=== PATIENT | female | born 1955 | race Caucasian/White ===

== ENCOUNTER → 2017-07-22 | Outpatient (CLI) | payer OTHER ==
[~2017-07-22] MED LIST: ACID REDUCER200 MG PO; ASPIRIN 32325 MG/TAB PO; BENICAR 20MG TA20 MG PO; CO Q-1050 MG; D BIOTIN PO; FLONASE NASAL S16 GM NS; FORT1000TA; GLUCOSAMINE & C1 CA1 PO; HCTZ 25MG TAB25 MG PO; LUTEIN; MVI; NIASPAN1000 MG PO; PRAVACHOL 20MG20 MG PO; SYNTHROID 0.0.025 MG; SYNTHROID0.1 MG/TAB PO; VIT D; ZOLOFT 50MG50 MG PO; [UNRECOGNIZED DRUG - OTHER]; [UNRECOGNIZED DRUG - OTHER]; fish oil; vit e
== END ==
LOC: MC.RAD 13:59
DX: Z12.31 Encounter for screening mammogram for malignant neoplasm of breast (principal)

== ENCOUNTER → 2018-09-29 | Outpatient (CLI) | payer BC | LOC: MC.RAD 09:57 | DX: Z12.31 Encounter for screening mammogram for malignant neoplasm of breast (principal) ==

== ENCOUNTER 2018-10-27 06:50 | Inpatient (IN) | payer BC ==
[~2018-10-27] VITALS: Ht 165.2 cm; Wt 127.0 kg
[2018-10-27] VITALS (10 sets, daily range): BP systolic 97–119; BP diastolic 50–82; PULSE 68–106; TEMP 97.2–97.6
[2018-10-27 07:45] LABS: INR 1.2 (0.8-3.0); PROTHROMBIN TIME 13.4 SECONDS (9.7-12.8)
[2018-10-27] MEDS ORDERED: SYNTHROID 0.10.15 MG PO (08:01)
[2018-10-27] MEDS ORDERED: BENICAR HCT 251 TAB PO (08:02)
[2018-10-27] MEDS ORDERED: PRILOSEC 20MG20 MG PO (08:03)
[2018-10-27] MEDS ORDERED: WELLBUTRIN XL300 M1 PO (08:04)
[2018-10-27] MEDS ORDERED: CULTURELLE CAP1 EAC1 PO (08:06)
[2018-10-27] MEDS ORDERED: VITAMINC1000TA PO (08:07)
[2018-10-27] MEDS ORDERED: NATURAL E400 IU PO (08:07)
[2018-10-27] MEDS ORDERED: ELIQUIS 5MG PO (08:08)
[2018-10-27] MEDS ORDERED: LOPRESSOR 225 MG/TAB PO (08:08)
[2018-10-27] MEDS ORDERED: OSTEO-BI-FLEX 21 TAB PO (08:11)
[2018-10-27] MEDS ORDERED: GLUCOPHAGE XR500 M1 PO (08:12)
[2018-10-27 08:19] LABS: THYROID STIMULATING HORMONE 0.511 uIU/mL (0.465-4.680)
[2018-10-27] MEDS ORDERED: PRAVACHOL 20MG20 MG PO (08:48)
[2018-10-27] MEDS ORDERED: ZOLOFT 50MG50 MG PO (08:48)
[2018-10-27] MEDS ORDERED: CENTRUM SILVER1 CTB PO (08:49)
[2018-10-27] MEDS ORDERED: ASPIRIN E.C. 8181 MG PO (08:50)
[2018-10-27] MEDS ORDERED: THE MEDICINE S200 M2 PO (08:50)
[2018-10-27] MEDS ORDERED: LIDEX CR 15GM TP (08:51)
[2018-10-27] MEDS ORDERED: MASON NATURAL1200 MG PO (08:51)
[2018-10-27] MEDS ORDERED: ZYRTEC 10MG10 MG PO (08:52)
[2018-10-27] MEDS ORDERED: FLONASEALLERGY NS (08:53)
[2018-10-27] MEDS ORDERED: TYLENOL 500MG500 MG PO (08:53)
[2018-10-27] MEDS ORDERED: LUTEIN20 M1 PO (08:57)
--- NOTE | 2018-10-27 09:50 | NUR ---
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 Pt caty LUCHO/CV well. Pt resting well in bed.
--- NOTE | 2018-10-27 10:29 | NUR ---
Pt wake and resting well.
--- NOTE | 2018-10-27 12:00 | NUR ---
Phone report to Diane RAMSEY.
--- NOTE | 2018-10-27 12:25 | NUR ---
Pt transfered to 318 per w/c by nurse. Contreras RN in room to receive pt.
--- NOTE | 2018-10-27 12:35 | NUR ---
This patient arrived to the floor at this time. No pain or needs reported. The call light is in place. Oriented to the room and how to order meals. Telemetry is in place. The is at the bedside.
--- NOTE | 2018-10-27 17:19 | NUR ---
No change throughout the afternoon. No chest pain. Telemetry remains in NRS rate 70 bpm. The call light is in place.
--- NOTE | 2018-10-27 18:56 | NUR ---
Report given to BRAULIO Holbrook to resume care.
--- NOTE | 2018-10-27 20:00 | NUR ---
Shift assessment complete. Pt resting in bedside recliner, awake, a&o, cooperative c cares. Pt denies pain or any other c/o. INT patent. Tele in place. Pt denies needs. Call light in reach, will monitor.
[2018-10-28] VITALS (7 sets, daily range): BP systolic 90–113; BP diastolic 44–75; PULSE 61–64; TEMP 97.5–98.2
--- NOTE | 2018-10-28 08:30 | NUR ---
Assessment complete. Pt sitting up in chair, A&O x 4. Breath sounds CTAB. BS active x 4. Heart sounds S1 & S2 RRR. Saline lock IV to right forearm patent without s/s of complications. Pt denies pain at this time, reports having slight headache over night that has resolved now. No further needs reported. Call light in reach.
--- NOTE | 2018-10-28 09:48 | NUR ---
Initial visit; Patient thanked Property Insurance Claims Examiner for offering "Hello" and God"s blessings.
--- NOTE | 2018-10-28 13:46 | NUR ---
FARRAH and SW student met with the patient to discuss discharge plan. The patient lives in [place] with her , Flex. She reports independence with ADLs and does not use any DME. The patient's PCP is Dr. Amy Eng and she receives her medications at the [facility]. She reports no difficulties obtaining her meds. The patient does not have advanced directives, but she was interested in obtaining the form for DPOA-[facility]. SW provided. The patient plans to return home with her upon discharge. No additional needs at this time.
--- NOTE | 2018-10-28 18:30 | NUR ---
Pt ambulating in hallway with steady gait, uneventful shift, denies pain or dizziness.
--- NOTE | 2018-10-28 20:50 | NUR ---
Shift assessment complete. Pt resting in bedside recliner, awake, a&o, cooperative c cares. Pt denies pain, dizziness, palpitations or any other c/o. INT patent. Tele in place. Pt denies needs. Call light in reach, will monitor
[2018-10-29 03:32] VITALS: BP 117/59; PULSE 66; TEMP 98.1
[2018-10-29 06:42] LABS: CALCIUM 9.8 mg/dL (8.4-10.2); CREATININE, serum 1.25 mg/dL (0.52-1.25); MAGNESIUM 1.7 mg/dL (1.6-2.3)
[2018-10-29 08:32] VITALS: BP 105/47; PULSE 60; TEMP 97.9
--- NOTE | 2018-10-29 08:59 | NUR ---
Initial visit; Patient thanked [employer] for looking in on her and offering God's blessings.
--- NOTE | 2018-10-29 09:00 | NUR ---
Assessment complete. Pt sitting up in chair, A&O x 4. Breath sounds CTAB. BS active x 4. Pt denies pain at this time. Saline lock IV to right forearm patent without s/s of complications. No further needs reported. Call light in reach.
[2018-10-29 12:12] VITALS: BP 115/70; PULSE 54; TEMP 98.5
[2018-10-29 17:01] VITALS: BP 118/71; PULSE 58; TEMP 98.8
--- NOTE | 2018-10-29 18:00 | NUR ---
Pt ambulating in hallway with steady gait, denies needs at this time.
[2018-10-29 20:17] VITALS: BP 105/60; PULSE 59; TEMP 97.9
--- NOTE | 2018-10-29 21:42 | NUR ---
Pt sitting up in recliner watching TV, shift assessment complete.
[2018-10-29 23:55] VITALS: BP 93/54; PULSE 59; TEMP 97.4
[2018-10-30 04:16] VITALS: BP 99/56; PULSE 52; TEMP 97.9
--- NOTE | 2018-10-30 05:18 | NUR ---
Pt slept well during the night, no C/O pain, VS have been stable, Pt's BP has been running in the low 100s to low 90s.
[2018-10-30 08:18] VITALS: BP 118/67; PULSE 66; TEMP 98
[2018-10-30] MEDS ORDERED: BETAPACE 80MG80 MG PO (11:01)
--- NOTE | 2018-10-30 13:50 | NUR ---
Pt was discharged home from hospital. All discharge instructions and paperwork was reviewed with the pt who expressed understanding and had no questions. Saline lock removed, catheter tip intact. New Rx sent electronically. Pt to be escorted out of facility by staff.
== END 2018-10-30 14:49 | disposition home or self-care (01) | DRG 310 ==
LOC: COL.CAR 06:50 → MEDICAL 10:50
PROVIDERS: ADMIT Internal Medicine Cardiovascular Disease
PROC: 5A2204Z Restoration of Cardiac Rhythm, Single (ICD-10-PCS; principal; 2018-10-27)
DX: I48.3 Typical atrial flutter (principal); E78.2 Mixed hyperlipidemia; I12.9 Hypertensive chronic kidney disease with stage 1 through stage 4 chronic kidney disease, or unspecified chronic kidney disease; N18.2 Chronic kidney disease, stage 2 (mild); Z79.01 Long term (current) use of anticoagulants; I83.93 Asymptomatic varicose veins of bilateral lower extremities; E83.42 Hypomagnesemia
CPT/HCPCS: G9654; J2704; J3475; J7030

== ENCOUNTER → 2019-11-12 | Outpatient (CLI) | payer MEDICARE, OTHER ==
[~2019-11-12] MED LIST changes: +ASPIRIN E.C. 8181 MG PO; +BENICAR HCT 251 TAB PO; +BETAPACE 80MG80 MG PO; +CENTRUM SILVER1 CTB PO; +CULTURELLE CAP1 EAC1 PO; +ELIQUIS 5MG PO; +FLONASEALLERGY NS; +GLUCOPHAGE XR500 M1 PO; +LIDEX CR 15GM TP; +LOPRESSOR 225 MG/TAB PO; +LUTEIN20 M1 PO; +MASON NATURAL1200 MG PO; +NATURAL E400 IU PO; +OSTEO-BI-FLEX 21 TAB PO; +PRILOSEC 20MG20 MG PO; +SYNTHROID 0.10.15 MG PO; +THE MEDICINE S200 M2 PO; +TYLENOL 500MG500 MG PO; +VITAMINC1000TA PO; +WELLBUTRIN XL300 M1 PO; +ZYRTEC 10MG10 MG PO
== END ==
LOC: MC.RAD 10:15
DX: Z12.31 Encounter for screening mammogram for malignant neoplasm of breast (principal)